=== PATIENT | male | born 1950 | race Caucasian/White ===

== ENCOUNTER 2018-01-06 14:03 | Outpatient (CLI) | payer MEDICARE ==
--- NOTE | 2018-01-06 15:44 | RAD ---
TWO VIEWS CHEST 01/06/18 PROVIDED CLINICAL HISTORY: Dyspnea. FINDINGS: COMPARISON: 10/23/15 Cardiac and mediastinal silhouette is unchanged in appearance. Emphysematous changes are again seen. Elevation of the right hemidiaphragm is stable with respect to the prior study. No focal consolidatio n, pleural fluid or pneumothorax apparent. IMPRESSION: Stable radiographic appearance of the chest. POS: [facility]
== END 2018-01-06 14:04 | disposition home or self-care (01) ==
LOC: RAD 14:03
PROVIDERS: ATTEND Internal Medicine Critical Care Medicine
DX: R06.00 Dyspnea, unspecified (principal)
CPT/HCPCS: 71046

== ENCOUNTER 2018-02-05 13:24 | Outpatient (CLI) | payer MEDICARE | END 2018-02-05 13:25 | disposition home or self-care (01) | LOC: CP 13:24 | PROVIDERS: ATTEND Internal Medicine Critical Care Medicine | DX: R06.00 Dyspnea, unspecified (principal) | CPT/HCPCS: 94060; 94727; 94729 ==

== ENCOUNTER 2019-06-20 07:10 | Emergency (ER) | payer MEDICARE ==
[2019-06-20 07:53] LABS: #Eosinphils 0.6 thou/uL (0.0-0.7); #Lymphocytes 1.2 thou/uL (1.20-3.40); #Neutrophils 9.5 thou/uL (1.40-6.50); %Basophils 0.4 % (0.0-1.0); %Eosinophils 4.6 % (0.0-10.0); %Monocytes 8.4 % (0.0-10.0); %Neutrophils 76.6 % (42.0-75.0); Hemoglobin 13.4 g/dL (14.0-18.0); Mean Corpuscular HGB CONC 34.1 g/dL (32.0-36.0); Mean Platelet Volume 7.2 fL (7.4-10.4); Platelet Count 303 thou/uL (130-400); RBC Distribution Width 13.6 % (11.5-14.5); Red Blood Cell (RBC) Count 4.19 mill/uL (4.70-6.10); White Blood Cell (WBC) Count 12.4 thou/uL (4.8-10.8)
--- NOTE | 2019-06-20 08:11 | ULT ---
RIGHT UPPER QUADRANT ULTRASOUND: HISTORY: Abdominal pain. FINDINGS: Minimal heterogeneous liver echogenicity, possibly mild hepatic parenchymal process. No evidence of gallstones, wall thickening, edema, or pericholecystic fluid. Common bile duct 0.4 cm. Visualized p ancreas and right kidney are unremarkable. IMPRESSION: Slightly heterogeneous liver echogenicity. No evidence of gallstones or other acute process. POS: [facility]
[2019-06-20 08:14] LABS: ALT (SGPT) 26 U/L (8-55); AST (SGOT) 29 U/L (5-34); Albumin 4.3 g/dL (3.4-4.8); Alkaline Phosphatase 53 U/L (40-150); Anion Gap 10 mmol/L (10-20); BUN (Urea Nitrogen) 18 mg/dL (8.4-25.7); Bilirubin, Total 0.9 mg/dL (0.2-1.2); Calc. Creatinine Clearance 0 mL/min (70-130); Calcium 9.2 mg/dL (7.8-10.44); Carbon Dioxide 27 mmol/L (23-31); Chloride 104 mmol/L (98-107); Estimated GFR-MDRD Greater than 90; Globulin 2.3 g/dL (2.4-3.5); Glucose 99 mg/dL (80-115); Lipase 21 U/L (8-78); Potassium 3.7 mmol/L (3.5-5.1); Protein, Total 6.6 g/dL (5.8-8.1); Sodium 137 mmol/L (136-145)
--- NOTE | 2019-06-20 11:21 | CT ---
EXAM: Abdomen and pelvic CT scan with contrast: HISTORY: Right-sided abdominal pain COMPARISON: None FINDINGS: Small hiatal hernia. The visualized lung bases are clear. Liver: Unremarkable. Gallbladder:No evidence of gallstones. Small soft tissue density nodular area at the gallbladder fund us possibly a small fundal adenomyoma. No evidence for acute cholecystitis. Pancreas:Unremarkable Spleen:Unremarkable. Adrenal glands:Unremarkable. Kidneys:No renal calculus or acute obstruction. Bilateral renal hypodensities evidence for cysts. No evidence for bowel obstruction. Focal area of abnormal wall thickening and probable mass in the cecum up to 5.6 cm with minimal peric olonic fat stranding. Concerning for cecal malignancy. Colonic diverticulosis without acute diverticulitis. The appendix has fluid within it and measures between 0.6 and 0.7 cm. There is some pericecal fat str anding. I do not think that these findings are consistent with acute appendicitis however. The urinary bladder is unremarkable. Reproductive system:Enlarged prostate gland. Small fat-containing left inguinal hernia. No abscess, adenopathy, or abnormal fluid collection within the abdomen or pelvis. IMPRESSION: Evidence for large cecal mass with minimal pericecal fat stranding. No convincing CT evidence for acute appendicitis. Other nonemergent findings as above.
[2019-06-20] MEDS ORDERED: ISOVUE-370 76%-LOCM 1 ML ONE (13:01)
== END 2019-06-20 11:57 | disposition home or self-care (01) ==
LOC: ERS 07:10
DX: K63.89 Other specified diseases of intestine (principal); I10 Essential (primary) hypertension; Z87.891 Personal history of nicotine dependence
CPT/HCPCS: 74177; 76705; 80053; 83605; 83690; 84484; 85025; 93005; Q9966

== ENCOUNTER 2019-08-26 10:03 | Outpatient (CLI) | payer MEDICARE ==
--- NOTE | 2019-08-26 10:25 | RAD ---
RADIOGRAPH CHEST 2 VIEWS: DATE: 08/26/2019 HISTORY: 69-year-old male with dyspnea Dr. Madden reported the new lung nodule by telephone with Dr. Mohan's crossing gateman Shonna Navarro at 10: 20 AM on 08/26/2019. She was instructed to inform Dr. Mohan. COMPARISON: 01/06/2018 FINDINGS: There is a new, approximately 10 mm right upper lobe pulmonary nodule. There has been no other interv al change. Again noted is the mild elevation of the lateral aspect of the right hemidiaphragm consistent with scarring. There is no airspace density, pulmonary edema, pleural effusion, pneumothor ax, or cardiomegaly. IMPRESSION: 1. Right upper lobe pulmonary nodule. Recommend chest CT. 2. No acute cardiopulmonary findings.
== END 2019-08-26 10:04 | disposition home or self-care (01) ==
LOC: RAD 10:03
PROVIDERS: ATTEND Internal Medicine Critical Care Medicine
DX: R06.00 Dyspnea, unspecified (principal); R91.1 Solitary pulmonary nodule
CPT/HCPCS: 71046

== ENCOUNTER 2019-11-03 13:03 | Outpatient (CLI) | payer MEDICARE ==
[2019-11-03 13:27] LABS: Estimated GFR-MDRD - POC Greater than 90
--- NOTE | 2019-11-03 14:36 | CT ---
EXAM: CT of the chest with contrast HISTORY: Pulmonary nodule COMPARISON: 03/18/2011; chest x-ray 08/26/2019 TECHNIQUE: Multiple contiguous axial images were obtained in a CT the chest with contrast. Coronal an d sagittal reformats were performed. FINDINGS: HEART: Normal in size without focal cardiac abnormality. Calcification are seen in the coronary arter ies. MEDIASTINUM: No hilar or mediastinal lymphadenopathy. LUNGS: No focal infiltrates, nodules, or masses. PLEURAL SPACE: No pneumothorax or pleural effusion. CHEST WALL SOFT TISSUES: Unremarkable OSSEOUS STRUCTURES: Degenerative changes in the spine. VISUALIZED SUBDIAPHRAGMATIC STRUCTURES: Bilateral renal cysts measuring up to 2.4 cm in size. IMPRESSION: No intrathoracic nodules identified.
== END 2019-11-03 13:04 | disposition home or self-care (01) ==
LOC: CT 13:03
PROVIDERS: ATTEND Internal Medicine Critical Care Medicine
DX: R91.1 Solitary pulmonary nodule (principal)
CPT/HCPCS: 71260; 82565

== ENCOUNTER 2020-12-05 10:42 | Outpatient (CLI) | payer MEDICARE ==
--- NOTE | 2020-12-05 11:01 | RAD ---
PA AND LATERAL CHEST: HISTORY: Dyspnea. COMPARISON: 08/26/2019 exam. FINDINGS: Heart size is within normal limits. There are atherosclerotic changes of the aorta. Pleural ortiz es in the right base are similar to the previous exam. No new process noted. Nodular density seen i n the right upper lobe on that study is not identified on this exam. IMPRESSION: Stable study. POS: [facility]
== END 2020-12-05 10:43 | disposition home or self-care (01) ==
LOC: BICRAD 10:42
PROVIDERS: ATTEND Internal Medicine Critical Care Medicine
DX: R06.00 Dyspnea, unspecified (principal)
CPT/HCPCS: 71046

== ENCOUNTER 2021-08-16 14:02 | Outpatient (CLI) | payer MEDICARE | END 2021-08-16 14:03 | disposition home or self-care (01) | LOC: RAD 14:02 | PROVIDERS: ATTEND Internal Medicine Critical Care Medicine | DX: R06.00 Dyspnea, unspecified (principal) | CPT/HCPCS: 71046 ==

== ENCOUNTER 2022-08-12 07:58 | Outpatient (CLI) | payer MEDICARE | END 2022-08-12 07:59 | disposition home or self-care (01) | LOC: RAD 07:58 | PROVIDERS: ATTEND Internal Medicine Critical Care Medicine | DX: R06.00 Dyspnea, unspecified (principal); J44.9 Chronic obstructive pulmonary disease, unspecified; I27.20 Pulmonary hypertension, unspecified | CPT/HCPCS: 71046 ==

== ENCOUNTER 2023-03-21 09:27 | Outpatient (CLI) | payer MEDICARE, OTHER | END 2023-03-21 09:28 | disposition home or self-care (01) | LOC: RAD 09:27 | PROVIDERS: ATTEND Internal Medicine Critical Care Medicine | DX: R06.00 Dyspnea, unspecified (principal) | CPT/HCPCS: 71046 ==

== ENCOUNTER 2024-05-04 13:35 | Outpatient (CLI) | payer MEDICARE | END 2024-05-04 13:36 | disposition home or self-care (01) | LOC: RAD 13:35 | PROVIDERS: ATTEND Internal Medicine Critical Care Medicine | DX: R06.00 Dyspnea, unspecified (principal) | CPT/HCPCS: 71046 ==

== ENCOUNTER 2024-07-13 08:04 | Outpatient (CLI) | payer MEDICARE ==
[2024-07-13] MEDS ORDERED: Iopamidol 370 76% 100 ML VIAL ONE (10:35)
== END 2024-07-13 08:05 | disposition home or self-care (01) ==
LOC: BICCT 08:04
PROVIDERS: ATTEND Physician Assistant Medical
DX: K51.50 Left sided colitis without complications (principal); R19.02 Left upper quadrant abdominal swelling, mass and lump; K44.9 Diaphragmatic hernia without obstruction or gangrene; K57.30 Diverticulosis of large intestine without perforation or abscess without bleeding; N40.0 Benign prostatic hyperplasia without lower urinary tract symptoms
CPT/HCPCS: 74177; 82565; Q9967

== ENCOUNTER 2024-07-13 09:57 | Emergency (ER) | payer MEDICARE ==
[2024-07-13 13:13] LABS: #Basophils Less than 0.03 10x3/uL (0.0-0.2); %Basophils 0.3 % (0.0-1.0); %Eosinophils 4.9 % (0.0-10.0); %Lymphocytes 17.2 % (21.0-51.0); %Neutrophils 68.3 % (42.0-75.0); Hematocrit 41.7 % (42.0-52.0); Hemoglobin 13.6 g/dL (14.0-18.0); Mean Corpuscular HGB CONC 32.6 g/dL (32.0-36.0); Mean Corpuscular Hemoglobin 31.2 pg (27.0-31.0); Mean Corpuscular Volume 95.6 fL (78.0-98.0); Mean Platelet Volume 9.3 fL (7.4-10.4); Platelet Count 339 10x3/uL (130-400); RBC Distribution Width 14.9 % (11.5-14.5); Red Blood Cell (RBC) Count 4.36 mill/uL (4.70-6.10)
[2024-07-13 13:41] LABS: ALT (SGPT) 20 U/L (8-55); AST (SGOT) 27 U/L (5-34); Albumin 4.4 g/dL (3.4-4.8); Alkaline Phosphatase 61 U/L (40-110); Anion Gap 12 mmol/L (10-20); BUN (Urea Nitrogen) 13 mg/dL (8.4-25.7); Bilirubin, Total 0.6 mg/dL (0.2-1.2); Calc. Creatinine Clearance 0 mL/min (70-130); Calcium 9.9 mg/dL (7.8-10.44); Carbon Dioxide 25 mmol/L (23-31); Chloride 109 mmol/L (98-107); Estimated GFR 92; Globulin 3.1 g/dL (2.4-3.5); Glucose 106 mg/dL (83-110); Potassium 3.9 mmol/L (3.5-5.1); Protein, Total 7.5 g/dL (5.8-8.1); Sodium 142 mmol/L (136-145)
[2024-07-13 14:28] LABS: Bacteria/HPF None Seen HPF (None Seen); Bilirubin Negative (Negative); Blood, Urine Negative (Negative); CAUTI Indications for Culture Pelvic or flank pain; Clarity Clear (Clear); Glucose, Urine (Dipstick) Normal (Negative); Ketone, Urine Negative (Negative); Leukocyte Negative Leu/uL (Negative); Nitrite Negative (Negative); Protein, Urine (Dipstick) Negative (Neg-Trace); RBC/HPF 0-3 HPF (0-3); Specific Gravity, Urine 1.012 (1.002-1.036); Squamous Epithelial None Seen HPF (0-3); Urobilinogen Normal mg/dL (Less than 2); WBC/HPF 0-3 HPF (0-3)
[2024-07-13 14:32] LABS: Urine Culture Reflex No No
== END 2024-07-13 16:05 | disposition home or self-care (01) ==
LOC: ERS 09:57
DX: R33.9 Retention of urine, unspecified (principal); I10 Essential (primary) hypertension; Z87.891 Personal history of nicotine dependence
CPT/HCPCS: 36415; 51702; 80053; 81001; 85025; 87086

== ENCOUNTER 2025-05-04 13:13 | Outpatient (CLI) | payer MEDICARE | END 2025-05-04 13:14 | disposition home or self-care (01) | LOC: RAD 13:13 | PROVIDERS: ATTEND Internal Medicine Critical Care Medicine | DX: R06.00 Dyspnea, unspecified (principal) | CPT/HCPCS: 71046 ==

== ENCOUNTER 2025-05-12 06:09 | Day surgery (SDC) | payer MEDICARE ==
[2025-05-11 10:47] VITALS: BMI 23.5
[~2025-05-12 06:09] MED LIST: Fluorouracil 100 MG, Enoxaparin 25 MG, EPINEPHrine 0.3 MG in Ophthalmic Irrigation Solu... IRR SCH
[2025-05-12] MEDS ORDERED: Cyclopentolate 1% Opth Drop 2 ML BOT ONE (06:34)
[2025-05-12] MEDS ORDERED: Albuterol HFA (OR) 200 PUFF INH ONE (07:03)
[2025-05-12] MEDS ORDERED: PROPOFOL 20 ML ONE (07:03)
[2025-05-12] MEDS ORDERED: CEFAZOLIN 1 GM VIAL ONE (07:11)
[2025-05-12] MEDS ORDERED: Lidocaine 1% PF 5 ML VIAL ONE (07:11)
[2025-05-12] MEDS ORDERED: TISSUEBLUE 0.5 ML SYRINGE IO ONE (07:11)
[2025-05-12] MEDS ORDERED: Maxitrol 0.1% Opth Oint 3.5 GM TUBE ONE (07:11)
[2025-05-12] MEDS ORDERED: Enoxaparin 30 MG (0.3 mL) SYRINGE ONE (07:11)
[2025-05-12] MEDS ORDERED: Lidocaine 4% PF 5 ML AMP ONE (07:11)
== END 2025-05-12 09:14 | disposition home or self-care (01) ==
LOC: SDC 06:09
PROVIDERS: ATTEND Ophthalmology Retina Specialist
PROC: 08T43ZZ Resection of Right Vitreous, Percutaneous Approach (ICD-10-PCS; principal; 2025-05-12)
PROC: 08NE3ZZ Release Right Retina, Percutaneous Approach (ICD-10-PCS; 2025-05-12)
DX: H35.341 Macular cyst, hole, or pseudohole, right eye (principal)
CPT/HCPCS: 67025; 67042; J0166; J0690; J1650; J2250; J2704; J3010; J3301; J3490; J9190